=== PATIENT | female | born 2000 | race Hispanic/Latino ===

== ENCOUNTER 2021-02-10 01:49 | Emergency (ER) | payer OTHER | END 2021-02-10 02:16 | disposition home or self-care (01) | LOC: NAV ERS 01:49 | DX: J06.9 Acute upper respiratory infection, unspecified (principal) | CPT/HCPCS: 99283 ==

== ENCOUNTER 2021-03-16 00:34 | Emergency (ER) | payer OTHER ==
[2021-03-16 22:36] LABS: SARS-CoV-2 PCR by NAA DETECTED (NotDetected)
== END 2021-03-16 01:15 | disposition home or self-care (01) ==
LOC: NAV ERS 00:34
DX: U07.1 COVID-19 (principal); B34.9 Viral infection, unspecified; J06.9 Acute upper respiratory infection, unspecified
CPT/HCPCS: 99283; U0003; U0005

== ENCOUNTER 2021-06-08 21:01 | Emergency (ER) | payer OTHER, BC ==
[2021-06-08] MEDS ORDERED: traMADol HCl 50 MG TAB ONE (21:21)
[2021-06-08] MEDS ORDERED: Boostrix 0.5 ML (Tdap) VIAL ONE (21:21)
[2021-06-08] MEDS ORDERED: Silver Sulfadiazine 50 GM TUBE ONE (21:25)
[2021-06-08 22:48] LABS: SARS-CoV-2 NAA Rapid Test Not Detected (NotDetected)
== END 2021-06-08 22:49 | disposition short-term general hospital (02) ==
LOC: NAV ERS 21:01
DX: T23.232A Burn of second degree of multiple left fingers (nail), not including thumb, initial encounter (principal); T23.222A Burn of second degree of single left finger (nail) except thumb, initial encounter; T31.0 Burns involving less than 10% of body surface; X10.0XXA Contact with hot drinks, initial encounter; Z23 Encounter for immunization; Z20.822 Contact with and (suspected) exposure to COVID-19
CPT/HCPCS: 90471; 90715; 99284; U0002

== ENCOUNTER 2023-04-11 20:38 | Emergency (ER) | payer BC, OTHER ==
[2023-04-11] MEDS ORDERED: Acetaminophen 325 MG TAB ONE (20:47)
== END 2023-04-11 21:38 | disposition home or self-care (01) ==
LOC: NAV ERS 20:38
DX: U07.1 COVID-19 (principal); B34.9 Viral infection, unspecified; J02.0 Streptococcal pharyngitis; F17.290 Nicotine dependence, other tobacco product, uncomplicated
CPT/HCPCS: 87635; 87804; 99283